=== PATIENT | male | born 1970 | race Caucasian/White ===

== ENCOUNTER 2020-11-12 05:21 | Emergency (ER) | payer BC ==
[~2020-11-12] VITALS: Ht 170.2 cm; Wt 78.0 kg
--- NOTE | 2020-11-12 05:26 | NUR ---
PT bibra 89 c/o L flank pain that radiates to groin since 11/11/20 AM. WAS AWOKEN AT 0300 FOR SEVERE LEFT FLANK AND GROIN PAIN. denies dysuria. PT A/OX4. TOLERATING R/A WELL.
[2020-11-12] MEDS ORDERED: ONDANSETRON HCL/PF 4 MG/2 ML VIAL IVP ONE (05:30)
[2020-11-12] MEDS ORDERED: IV NS 0.9% 1,000 ML BAG IV ONE (05:30)
[2020-11-12] MEDS ORDERED: KETOROLAC TROMETHAMINE INJ 30 MG/ML VIAL IV ONE ×2 (05:30→06:00)
--- NOTE | 2020-11-12 05:30 | NUR ---
COLLECTED URINE SAMPLE AND SENT TO LAB
--- NOTE | 2020-11-12 05:31 | NUR ---
PT CONNECTED TO POX, BP, AND MONITOR. PROVIDED WARM BLANKET
[2020-11-12] MEDS ORDERED: KETOROLAC TROMETHAMINE 15 MG/ML VIAL ONE ×2 (05:34→05:37)
[2020-11-12] MEDS ORDERED: ONDANSETRON HCL/PF 4 MG/2 ML VIAL ONE (05:34)
[2020-11-12 05:43] LABS: BILIRUBIN,URINE SMALL (NEGATIVE); COLOR,URINE YELLOW (YELLOW); LEUKOCYTE ESTERASE ,URINE Negative (NEGATIVE); NITRITE, URINE Negative (NEGATIVE); PROTEIN,URINE Negative (NEGATIVE); UGLUCOSE Negative (NEGATIVE); UROBILINOGEN,URINE 0.2 EU/dL (0.2)
--- NOTE | 2020-11-12 05:45 | NUR ---
COLLECTED BLOODWORK AND SENT TO LAB. INITIATED LAC #20G WITH KEVIN
[2020-11-12 05:53] LABS: BASOPHILS # (AUTO) 0.1 K/uL (0.0-0.2); BASOPHILS % (AUTO) 1.4 % (0.0-2.0); EOSINOPHILS % (AUTO) 2.3 % (0.0-6.0); HEMATOCRIT 47 % (39-51); HEMOGLOBIN 16.2 g/dL (13.5-17.5); LYMPHOCYTES # (AUTO) 1.6 K/uL (0.8-4.8); LYMPHOCYTES % (AUTO) 18.1 % (20.0-44.0); MEAN CORPUSCULAR HGB CONC 34 g/dl (31.0-36.0); MEAN CORPUSCULAR VOLUME 91 fL (80-96); MONOCYTES # (AUTO) 0.5 K/uL (0.1-1.30); MONOCYTES % (AUTO) 5.1 % (2.0-12.0); NEUTROPHILS # (AUTO) 6.5 K/uL (1.8-8.9); NEUTROPHILS % (AUTO) 73.1 % (43.0-81.0); PLATELET COUNT (AUTO) 261 K/uL (150-450); RED BLOOD CELL COUNT(AUTO) 5.24 MIL/uL (4.5-6.0); WHITE BLOOD COUNT (AUTO) 8.9 K/uL (4.3-11.0)
--- NOTE | 2020-11-12 06:07 | NUR ---
PT TAKEN TO CT VIA KAREN
--- NOTE | 2020-11-12 06:17 | NUR ---
PT RETURNED TO ER BED 3
[2020-11-12 06:18] LABS: CALCIUM, SERUM 8.8 mg/dL (8.5-10.1); POTASSIUM 3.9 mmol/L (3.5-5.1)
[2020-11-12 06:23] LABS: ALBUMIN 3.7 g/dL (3.4-5.0); BILIRUBIN,DIRECT 0.2 mg/dL (0.0-0.2); BILIRUBIN,TOTAL 0.7 mg/dL (0.2-1.0); TOTAL PROTEIN, SERUM 6.9 g/dL (6.4-8.2)
--- NOTE | 2020-11-12 06:35 | NUR ---
PT DENIES PAIN OR DISCOMFORT AT THIS TIME
--- NOTE | 2020-11-12 07:19 | NUR ---
RECEIVED REPORT FROM MOLLY AVILA FOR [facility]. PT AWAKE ON BED, AAOX4, NOT IN RESPIRATORY DISTRESS, V/S STABLE, KEPT RESTED AND COMFORTABLE. WILL CONTINUE TO MONITOR.
[2020-11-12 07:42] LABS: BACTERIA,URINE Few /HPF (None Seen); MUCUS,URINE Moderate /LPF (None Seen); RBC,URINE 21-50 /HPF (0-2); SQUAMOUS EPITHELIAL CELL,UR Moderate /HPF (None Seen); WBC,URINE 0-3 /HPF (0-3)
[2020-11-12] MEDS ORDERED: OXYC5CAP18 PO (08:06)
[2020-11-12] MEDS ORDERED: NAPR-1009 PO (08:06)
[2020-11-12] MEDS ORDERED: TAMS-12 PO (08:06)
[2020-11-12 08:22] VITALS: BP 129/81
--- NOTE | 2020-11-12 08:23 | NUR ---
Patient discharged to home in stable condition. Written and verbal after care instructions given. Patient verbalizes understanding of instruction.IV removed. Catheter intact and site benign. Pressure and 4x4 applied to site. No bleeding noted.
== END 2020-11-12 08:23 | disposition home or self-care (01) ==
LOC: ER 05:24
DX: N20.0 Calculus of kidney (principal); Z79.899 Other long term (current) drug therapy
CPT/HCPCS: 36415; 74176; 80048; 80076; 81001; 83690; 85025; 96361; 96374; 96375; 99284; J1885 ×2; J2405; J7030